=== PATIENT | female | born 1990 ===

== ENCOUNTER 2021-03-13 17:21 | Emergency (ER) | payer OTHER ==
[~2021-03-13] VITALS: Ht 167.6 cm; Wt 71.7 kg
[2021-03-13] MEDS ORDERED: PRENATE DHA SO1 EAC1 PO (17:26)
== END 2021-03-13 22:45 | disposition home or self-care (01) ==
LOC: ER 17:21
DX: O26.891 Other specified pregnancy related conditions, first trimester (principal); K52.9 Noninfective gastroenteritis and colitis, unspecified; Z34.01 Encounter for supervision of normal first pregnancy, first trimester

== ENCOUNTER 2021-08-06 22:27 | Outpatient (CLI) | payer OTHER ==
[~2021-08-06 22:27] MED LIST: PRENATE DHA SO1 EAC1 PO
[2021-08-06] MEDS ORDERED: IRON PO (23:03)
== END 2021-08-07 10:19 | disposition home or self-care (01) ==
LOC: OBS/DEL 22:27
PROVIDERS: ATTEND Obstetrics & Gynecology
DX: O60.03 Preterm labor without delivery, third trimester (principal); O26.893 Other specified pregnancy related conditions, third trimester; R10.2 Pelvic and perineal pain; Z3A.33 33 weeks gestation of pregnancy

== ENCOUNTER 2021-08-14 11:51 | Inpatient (IN) | payer OTHER ==
[~2021-08-14] VITALS: Ht 167.6 cm; Wt 81.6 kg
[~2021-08-14 11:51] MED LIST changes: +IRON PO
[2021-08-14] MEDS ORDERED: FOLIC ACID20 MG PO (14:57)
[2021-08-14] MEDS ORDERED: PROBIOTIC1 EAC2 PO (14:57)
[2021-08-14] MEDS ORDERED: IRON325 MG PO (14:58)
[2021-08-14] MEDS ORDERED: PROGESTERO50 MG/1 ML IM (14:59)
== END 2021-08-16 13:01 | disposition home or self-care (01) | DRG 805 ==
LOC: LDR 11:51 → OB/GYN 22:33
PROVIDERS: ADMIT Obstetrics & Gynecology; ATTEND Obstetrics & Gynecology
PROC: 10E0XZZ Delivery of Products of Conception, External Approach (ICD-10-PCS; principal; 2021-08-14)
PROC: 4A1HXFZ Monitoring of Products of Conception, Cardiac Rhythm, External Approach (ICD-10-PCS; 2021-08-14)
DX: O42.013 Preterm premature rupture of membranes, onset of labor within 24 hours of rupture, third trimester (principal); O60.14X0 Preterm labor third trimester with preterm delivery third trimester, not applicable or unspecified; Z37.0 Single live birth; Z3A.34 34 weeks gestation of pregnancy